=== PATIENT | female | born 1955 | race Caucasian/White ===

== ENCOUNTER 2017-02-07 13:22 | Inpatient (IN) | payer MEDICARE ==
[~2017-02-07] VITALS: Ht 165.1 cm; Wt 67.8 kg
[2017-02-07] MEDS ORDERED: methylPREDNISolone SOD SUCC 125 MG/2 ML IVP ONE (14:30)
[2017-02-07] MEDS ORDERED: METHOCARBAMOL 1,000 MG in DEXTROSE 5% 100 ML IV ONE (14:30)
[2017-02-07] MEDS ORDERED: SODIUM CHLORIDE FLUSH 10ML SYR IVF ONE (14:30)
[2017-02-07] MEDS ORDERED: KETOROLAC 30 MG/1 ML IVPush ONE (14:30)
[2017-02-07] MEDS ORDERED: KETOROLAC 30 MG/1 ML ONE (14:37)
[2017-02-07] MEDS ORDERED: methylPREDNISolone SOD SUCC 125 MG/2 ML ONE (14:37)
[2017-02-07 14:39] LABS: HEMATOCRIT 38.9 % (34.6-47.8)
[2017-02-07 14:51] LABS: BLOOD UREA NITROGEN 7 mg/dL (7-18)
[2017-02-07 14:57] LABS: IS PT STATUS REG ER OR PRE ER? YES
[2017-02-07] MEDS ORDERED: DIVA250T4 PO (15:11)
[2017-02-07] MEDS ORDERED: AMLO10TA2 PO (15:11)
[2017-02-07] MEDS ORDERED: BENZ100C17 PO (15:11)
[2017-02-07] MEDS ORDERED: FLUT1BLS INH (15:11)
[2017-02-07] MEDS ORDERED: AMLO5TAB2 PO (15:11)
[2017-02-07] MEDS ORDERED: AMOX1TAB64 PO (15:11)
[2017-02-07] MEDS ORDERED: PRED20TA PO (15:11)
[2017-02-07] MEDS ORDERED: LEVOFLOXACIN/PMX 750MG/150ML 150 ML IV ONE (15:30)
[2017-02-07] MEDS ORDERED: LEVOFLOXACIN/PMX 750MG/150ML 150 ML ONE (15:46)
[2017-02-07] MEDS ORDERED: ONDANSETRON 2MG/ML, 2ML ONE (16:42)
[2017-02-07] MEDS ORDERED: MORPHINE SULFATE 4 MG/ML, 1ML ONE (16:42)
[2017-02-07] MEDS ORDERED: GUAIFENESIN/DM 200-20MG, 10ML UDC PO PRN (17:00)
[2017-02-07] MEDS ORDERED: HYDROcodone/APAP 5/325 TABLET PO PRN (17:00)
[2017-02-07] MEDS ORDERED: morphine SULFATE 10 MG/ML, 1ML IVPush ONE (17:00)
[2017-02-07] MEDS ORDERED: ONDANSETRON 2MG/ML, 2ML IVPush PRN (17:00)
[2017-02-07] MEDS ORDERED: morphine SULFATE 10 MG/ML, 1ML IVPush PRN (17:00)
[2017-02-07] MEDS ORDERED: ENOXAPARIN 40 MG/0.4 ML SQ SCH (17:00)
[2017-02-07] MEDS ORDERED: TEMAZEPAM 15 MG CAPSULE PO PRN (17:00)
[2017-02-07] MEDS ORDERED: LABETALOL 5MG/ML, 20ML IVPush PRN (17:00)
[2017-02-07] MEDS ORDERED: DOCUSATE 100 MG CAPSULE PO PRN (17:00)
[2017-02-07] MEDS ORDERED: ONDANSETRON 2MG/ML, 2ML IVPush ONE (17:00)
[2017-02-07 17:24] VITALS: BP 129/79
[2017-02-07] MEDS ORDERED: GLUCAGON 1 MG IM PRN (17:30)
[2017-02-07] MEDS ORDERED: DEXTROSE 50%, 50ML SYRINGE IVPush PRN (17:30)
[2017-02-07] MEDS ORDERED: CYCLOBENZAPRINE 10 MG TABLET PO PRN (17:30)
[2017-02-07] MEDS ORDERED: DEXTROSE 4 GM TAB.CHEW PO PRN (17:30)
[2017-02-07] MEDS ORDERED: OMNIPAQUE 350 MG/ML, 100ML BOTTLE ONE (17:35)
[2017-02-07] MEDS ORDERED: ALBUTEROL SULFATE 2.5 MG/3 ML NPPB PRN (18:30)
[2017-02-07 19:44] VITALS: BP 111/69
[2017-02-07] MEDS ORDERED: POTASSIUM CHLORIDE 20 MEQ TAB.ER.PRT PO ONE (20:00)
[2017-02-07] MEDS ORDERED: methylPREDNISolone SOD SUCC 40 MG/ML IVPush SCH (20:00)
[2017-02-07] MEDS ORDERED: NS + 40MEQ KCL 1,000 ML IV SCH (20:00)
[2017-02-07] MEDS ORDERED: NICOTINE 14MG/24 HR PATCH.TD24 TD SCH (20:00)
[2017-02-07] MEDS ORDERED: FAMOTIDINE 20 MG/2 ML IVPush SCH (21:00)
[2017-02-07] MEDS: SODIUM CHLORIDE FLUSH 10ML SYR IVF SCH (21:17)
[2017-02-07] MEDS: INSULIN ASPART 100 UNITS/ML, PEN SQ-INSULIN SCH (21:19)
[2017-02-08 03:16] VITALS: BP 124/77
[2017-02-08 05:16] LABS: HEMATOCRIT 37.2 % (34.6-47.8); HEMOGLOBIN 12.2 g/dL (11.7-16.4)
[2017-02-08 05:25] LABS: BLOOD UREA NITROGEN 9 mg/dL (7-18)
[2017-02-08 05:31] LABS: ASPARTATE AMINO TRANSFERASE 29 U/L (15-37)
[2017-02-08 06:37] VITALS: BP 124/77
[2017-02-08] MEDS: INSULIN ASPART 100 UNITS/ML, PEN SQ-INSULIN SCH (07:00)
[2017-02-08] MEDS: SODIUM CHLORIDE FLUSH 10ML SYR IVF SCH (09:00)
[2017-02-08] MEDS ORDERED: DIVALPROEX 250 MG TABLET.DR PO SCH (09:00)
[2017-02-08] MEDS ORDERED: LEVOFLOXACIN/PMX 750MG/150ML 150 ML IV SCH (16:00)
== END 2017-02-08 12:30 | disposition left against medical advice (07) | DRG 193 ==
LOC: ED 15:12 → EDIP 15:13 → ED 15:45 → 3NW 17:27
PROVIDERS: ADMIT Internal Medicine; ATTEND Internal Medicine
DX: J18.9 Pneumonia, unspecified organism (principal); J96.00 Acute respiratory failure, unspecified whether with hypoxia or hypercapnia; E87.2 Acidosis; C78.7 Secondary malignant neoplasm of liver and intrahepatic bile duct; C77.1 Secondary and unspecified malignant neoplasm of intrathoracic lymph nodes; E44.0 Moderate protein-calorie malnutrition; J90 Pleural effusion, not elsewhere classified; J45.901 Unspecified asthma with (acute) exacerbation; C34.92 Malignant neoplasm of unspecified part of left bronchus or lung; E87.1 Hypo-osmolality and hyponatremia; R73.9 Hyperglycemia, unspecified; E87.6 Hypokalemia; I10 Essential (primary) hypertension; Z66 Do not resuscitate; Z72.0 Tobacco use; Z85.3 Personal history of malignant neoplasm of breast; Z68.24 Body mass index [BMI] 24.0-24.9, adult
CPT/HCPCS: 36415; 71010; 71275; 80048; 80053; 82040; 82962; 83036; 83605; 83735; 83880; 84100; 84145; 84484; 85025; 87040; 93005; J1815; J1885; J1956; J2405; Q9967; J2270; J2800; J2920; J2930; J3480; S0028

== ENCOUNTER 2017-04-14 23:49 | Inpatient (IN) | payer MEDICARE ==
[~2017-04-14] VITALS: Ht 162.6 cm; Wt 45.3 kg
[~2017-04-14 23:49] MED LIST: AMLO10TA2 PO; AMLO5TAB2 PO; AMOX1TAB64 PO; BENZ100C17 PO; DIVA250T4 PO; FLUT1BLS INH; PRED20TA PO
[2017-04-15] MEDS ORDERED: ONDANSETRON 2MG/ML, 2ML IVPush ONE (00:30)
[2017-04-15] MEDS ORDERED: SODIUM CHLORIDE 0.9% 1,000ML IVBOLUS ONE ×2 (00:30→02:30)
[2017-04-15] MEDS ORDERED: HYDROmorphone 1 MG/ML, 1ML ONE ×2 (00:42→02:11)
[2017-04-15] MEDS ORDERED: ONDANSETRON 2MG/ML, 2ML ONE (00:43)
[2017-04-15] MEDS: HYDROmorphone 1 MG/ML, 1ML IVPush PRN ×2 (00:55→02:15)
[2017-04-15 01:20] LABS: HEMATOCRIT 45.7 % (34.6-47.8); HEMOGLOBIN 15.2 g/dL (11.7-16.4); WHITE BLOOD COUNT 15.5 x10^3/uL (3.4-10)
[2017-04-15 01:31] LABS: BLOOD UREA NITROGEN 59 mg/dL (7-18)
[2017-04-15 01:33] LABS: ASPARTATE AMINO TRANSFERASE 88 U/L (15-37)
[2017-04-15] MEDS ORDERED: CIPROFLOXACIN/PMX 400MG/200ML 200 ML IV ONE (02:30)
[2017-04-15] MEDS ORDERED: METRONIDAZOLE PMX 500MG/100ML 100 ML IV ONE (02:30)
[2017-04-15] MEDS ORDERED: METRONIDAZOLE PMX 500MG/100ML 100 ML ONE (02:31)
[2017-04-15] MEDS ORDERED: CIPROFLOXACIN/PMX 400MG/200ML 200 ML ONE (02:32)
[2017-04-15 03:15] VITALS: BP 110/74
[2017-04-15 03:21] VITALS: BP 110/74
[2017-04-15] MEDS ORDERED: D5%-0.45NACL+KCL 20MEQ 1,000 ML IV SCH (03:35)
[2017-04-15] MEDS: HYDROmorphone 2 MG/ML, 1ML IVPush PRN ×3 (03:57→11:02)
[2017-04-15] MEDS ORDERED: metroNIDAZOLE 5 MG/ML INJ 500 MG in SYRINGE 1 EA IV SCH (04:00)
[2017-04-15] MEDS ORDERED: METRONIDAZOLE PMX 500MG/100ML 100 ML IVPB SCH (04:00)
[2017-04-15] MEDS ORDERED: LABETALOL 5MG/ML, 20ML IVPush PRN (04:00)
[2017-04-15] MEDS ORDERED: OXYcodone IR 5MG TABLET PO PRN (04:00)
[2017-04-15] MEDS ORDERED: ONDANSETRON ODT 4 MG PO PRN (04:00)
[2017-04-15] MEDS ORDERED: ACETAMINOPHEN 325 MG TABLET PO PRN (04:00)
[2017-04-15] MEDS ORDERED: TEMAZEPAM 15 MG CAPSULE PO PRN (04:00)
[2017-04-15] MEDS ORDERED: ONDANSETRON 2MG/ML, 2ML IVPush PRN (04:00)
[2017-04-15] MEDS ORDERED: ENOXAPARIN 40 MG/0.4 ML SQ SCH (04:30)
[2017-04-15] MEDS ORDERED: CIPROFLOXACIN LACTATE 200 MG in DEXTROSE 5% 100 ML IV SCH (05:00)
[2017-04-15 08:00] VITALS: BP 118/61
[2017-04-15 08:32] LABS: BLOOD UREA NITROGEN 57 mg/dL (7-18)
[2017-04-15 08:39] LABS: HEMATOCRIT 46.8 % (34.6-47.8); HEMOGLOBIN 15.4 g/dL (11.7-16.4); WHITE BLOOD COUNT 23.7 x10^3/uL (3.4-10)
[2017-04-15 08:57] LABS: DIFF TOTAL CELLS COUNTED 100 CELL DIFF
[2017-04-15 08:58] LABS: VERIFY COUNTS? YES
[2017-04-15] MEDS ORDERED: FAMOTIDINE 20 MG/2 ML IVPush SCH (09:00)
[2017-04-15] MEDS ORDERED: CEFTRIAXONE PMX 1GM/50ML 50 ML IV SCH (09:00)
[2017-04-15 13:15] VITALS: BP 75/37
[2017-04-15] MEDS ORDERED: SODIUM CHLORIDE 0.9%, 500ML IVBOLUS ONE (13:30)
[2017-04-15] MEDS ORDERED: METRONIDAZOLE PMX 500MG/100ML 100 ML IV SCH (14:00)
[2017-04-15] MEDS ORDERED: morphine SULFATE ORAL.CONC 20 MG/ML BC PRN (17:00)
[2017-04-15] MEDS ORDERED: LORazepam INTENSOL 2 MG/ML SL PRN (17:00)
[2017-04-15] MEDS: morphine SULFATE 125 MG in SODIUM CHLORIDE 0.9% 237.5 ML IV PRN (17:49)
[2017-04-17] MEDS: morphine SULFATE 125 MG in SODIUM CHLORIDE 0.9% 237.5 ML IV PRN (00:20)
== END 2017-04-17 19:00 | disposition expired | DRG 871 ==
LOC: ED 23:59 → EDIP 04-15 02:15 → 3NW 04-15 03:16
PROVIDERS: ADMIT Internal Medicine; ATTEND Internal Medicine
PROC: 0T9B70Z Drainage of Bladder with Drainage Device, Via Natural or Artificial Opening (ICD-10-PCS; principal; 2017-04-15)
DX: A41.9 Sepsis, unspecified organism (principal); E43 Unspecified severe protein-calorie malnutrition; N17.9 Acute kidney failure, unspecified; E86.0 Dehydration; E87.6 Hypokalemia; Z85.118 Personal history of other malignant neoplasm of bronchus and lung; I10 Essential (primary) hypertension; K62.89 Other specified diseases of anus and rectum; R65.20 Severe sepsis without septic shock; Z51.5 Encounter for palliative care; Z66 Do not resuscitate; Z85.05 Personal history of malignant neoplasm of liver; Z85.3 Personal history of malignant neoplasm of breast; Z90.10 Acquired absence of unspecified breast and nipple; Z90.49 Acquired absence of other specified parts of digestive tract
CPT/HCPCS: 36415; 74020; 80048; 80053; 81001; 82040; 83735; 84100; 84439; 84443; 85025; 87077; 87086; 87186; 87324; 96361; 96374; 96375; 96376; J0696; J0744; J1170; J1650; J2405; J2270; J3480; J7030; J7040; J7050; S0028